=== PATIENT | male | born 1985 | race Caucasian/White ===

== ENCOUNTER 2017-03-24 05:19 | Emergency (ER) | payer OTHER ==
[2017-03-24] MEDS ORDERED: Pantoprazole IV* 40 MG IV ONE (05:37)
[2017-03-24] MEDS ORDERED: NS 0.9% 1000 ML* 1,000 ML IV ONE (05:37)
[2017-03-24 06:22] LABS: Hematocrit 44 % (42-52); Hemoglobin 15.2 g/dl (14.0-18.0); Mean Corpuscular HGB Conc 35 g/dl (31-36); Mean Corpuscular Hemoglobin 32 pg (27-31); Mean Corpuscular Volume 94 fL (80-94); Mean Platelet Volume 9 um3 (7.4-10.4); Red Cell Distribution Width 13 % (10.5-15); White Blood Count 7.7 10^3/ul (3.5-10.8)
[2017-03-24 06:34] LABS: BUN/Creatinine Ratio 14.7 (8-20); EGFR African American 109.6 (>60); EGFR Non-African American 85.2 (>60); Globulin 2.5 g/dL (2-4); Potassium 3.6 mmol/L (3.5-5.0); Total Bilirubin 0.8 mg/dL (0.2-1.0); Total Protein 6.5 g/dL (6.4-8.9)
--- NOTE | 2017-03-24 06:46 | ED ---
Maurizio Wong Tiffany, scribcasper for Dillan Dimas on 03/24/17 at 0545 . Abdominal Pain/Male - HPI Summary HPI Summary: This patient is a 31 year old male presenting to [facility] with a chief complaint of upper abdominal pain since two days ago. The patient rates the pain 8/10 in severity. Symptoms aggravated by nothing. Symptoms alleviated by nothing. Patient denies vomiting, diarrhea, chest pain, shortness of breath and fever. Patient notes pain is similar to pain from endoscopy from a few years ago. - History of Current Complaint Chief Complaint: EDAbdPain Stated Complaint: ABD PAIN Hx Obtained From: Patient Onset/Duration: Lasting Days - 2 days, Still Present Timing: Constant Severity Currently: Moderate Pain Intensity: 8 Pain Scale Used: 0-10 Numeric Location: Epigastric Aggravating Factor(s): Nothing Alleviating Factor(s): Nothing Associated Signs And Symptoms: Positive: Other - denies vomiting, diarrhea, chest pain, shortness of breath and fever - Allergies/Home Medications Allergies/Adverse Reactions: Allergies Allergy/AdvReac Type Severity Reaction Status Date / Time Amoxicillin Allergy Severe Hives Verified 06/14/12 19:06 PMH/Surg Hx/FS Hx/Imm Hx Previously Healthy: Yes Sensory History: Reports: Hx Contacts or Glasses EENT History: Denies: Hx Deafness Infectious Disease History: No Infectious Disease History: Denies: Traveled Outside the [place] in Last 30 Days - Family History Known Family History: Positive: Diabetes Negative: Cardiac Disease - Social History Alcohol Use: Occasionally Hx Substance Use: No Substance Use Type: Reports: None Hx Tobacco Use: Yes Review of Systems Negative: Fever Negative: Chest Pain Negative: Shortness Of Breath Positive: Abdominal Pain - Upper. Negative: Vomiting, Diarrhea All Other Systems Reviewed And Are Negative: Yes Physical Exam - Summary Physical Exam Summary: Appearance: Well appearing, no pain distress Skin: warm, dry, reflects adequate perfusion Head/face: normal Eyes: EOMI, DRISS ENT: normal Neck: supple, non-tender Respiratory: CTA, breath sounds present Cardiovascular: RRR, pulses symmetrical Abdomen: tenderness in epigastric RUQ Bowel: present Musculoskeletal: normal, strength/ROM intact Neuro: normal, sensory motor intact, A&Ox3 Triage Information Reviewed: Yes Vital Signs On Initial Exam: Initial Vitals Temp Pulse Resp BP Pulse Ox 97.9 F 83 16 141/90 100 03/24/17 05:25 03/24/17 05:25 03/24/17 05:25 03/24/17 05:25 03/24/17 05:25 Vital Signs Reviewed: Yes Diagnostics - Vital Signs Vital Signs Temp Pulse Resp BP Pulse Ox 03/24/17 05:25 97.9 F 83 16 141/90 100 - Laboratory Lab Results: Lab Results 03/24/17 03/24/17 03/24/17 Range/Units 05:50 05:50 05:50 WBC 7.7 (3.5-10.8) 10^3/ul RBC 4.70 (4.0-5.4) 10^6/ul Hgb 15.2 (14.0-18.0) g/dl Hct 44 (42-52) % MCV 94 (80-94) fL MCH 32 H (27-31) pg MCHC 35 (31-36) g/dl RDW 13 (10.5-15) % Plt Count 212 (150-450) 10^3/ul MPV 9 (7.4-10.4) um3 Neut % (Auto) 59.3 (38-83) % Lymph % (Auto) 28.4 (25-47) % [place] % (Auto) 8.6 (1-9) % Eos % (Auto) 2.9 (0-6) % Baso % (Auto) 0.8 (0-2) % Absolute Neuts (auto) 4.6 (1.5-7.7) 10^3/ul Absolute Lymphs (auto) 2.2 (1.0-4.8) 10^3/ul Absolute Monos (auto) 0.7 (0-0.8) 10^3/ul Absolute Eos (auto) 0.2 (0-0.6) 10^3/ul Absolute Basos (auto) 0.1 (0-0.2) 10^3/ul Absolute Nucleated RBC 0 10^3/ul Nucleated RBC % 0.1 INR (Anticoag Therapy) 0.86 (0.77-1.02) APTT 30.4 (26.0-36.3) seconds Sodium 138 (133-145) mmol/L Potassium 3.6 (3.5-5.0) mmol/L Chloride 103 (101-111) mmol/L Carbon Dioxide 29 (22-32) mmol/L Anion Gap 6 (2-11) mmol/L BUN 15 (6-24) mg/dL Creatinine 1.02 (0.67-1.17) mg/dL Est GFR ( Amer) 109.6 (>60) Est GFR (Non-Af Amer) 85.2 (>60) BUN/Creatinine Ratio 14.7 (8-20) Glucose 95 (70-100) mg/dL Calcium 9.0 (8.6-10.3) mg/dL Total Bilirubin 0.80 (0.2-1.0) mg/dL AST 25 (13-39) U/L ALT 21 (7-52) U/L Alkaline Phosphatase 46 (34-104) U/L Troponin I 0.00 (<0.04) ng/mL Total Protein 6.5 (6.4-8.9) g/dL Albumin 4.0 (3.2-5.2) g/dL Globulin 2.5 (2-4) g/dL Albumin/Globulin Ratio 1.6 (1-3) Lipase 20 (11.0-82.0) U/L Result Diagrams: 03/24/17 05:50 03/24/17 05:50 Lab Statement: Any lab studies that have been ordered have been reviewed, and results considered in the medical decision making process. - EKG 05:42 Cardiac Rate: NL EKG Rhythm: Sinus Rhythm - 74 BPM EKG Interpretation: No acute changes Abdominal Pain Fem Course/Dx - Course Course Of Treatment: This patient is a 31 year old male presenting to [facility] with a chief complaint of upper abdominal pain since two days ago. An EKG reveals sinus rhythm at 74 BPM and no acute changes. Bloodwork and Urinalysis obtained. In the ED course the patient was given Protonics. Patient will be signed out to Dr. Carey at shift change, awaiting CXR and US Gallbladder reports. - Diagnoses Provider Diagnoses: Abdominal pain Discharge - Discharge Plan Condition: Fair Disposition: OTHER Discharge Disposition Comment: Patient will be signed out at shift change, awaiting CXR and US reports Referrals: No Primary Care Phys,NOPCP [Primary Care Provider] - The documentation as recorded by the Maurizio hill Tiffany accurately reflects the service I personally performed and the decisions made by , Dillan Dimas.
[2017-03-24 07:09] LABS: Urine Bilirubin Negative (Negative); Urine Glucose Negative (Negative); Urine Nitrite Negative (Negative)
--- NOTE | 2017-03-24 08:02 | RAD ---
INDICATION: Chest pain COMPARISON: None. TECHNIQUE: Single AP portable view of the chest was obtained. FINDINGS: Image quality is compromised due to the relative inferiority of a portable chest x-ray. The heart and mediastinum exhibit normal size and contour. The lungs are grossly clear. There is no evidence of a large pleural effusion. Visualized bones are normal for the patient's age. IMPRESSION: No radiographic evidence for acute cardiopulmonary abnormality on this portable chest x-ray.
--- NOTE | 2017-03-24 08:24 | RAD ---
HISTORY: Right upper quadrant pain. COMPARISONS: Similar examination dated June 14, 2012 TECHNIQUE: Multiple transverse and longitudinal ultrasound images were obtained of the right upper quadrant. FINDINGS: LIVER: The liver is normal in dimensions and echogenicity. Normal hepatic and portal venous blood flow is duplicated with color flow imaging. There is no gross intrahepatic biliary duct dilatation. GALLBLADDER AND EXTRAHEPATIC BILIARY DUCT: The gallbladder is normal in appearance without intraluminal stones or other soft tissue masses. There is no pericholecystic fluid or gallbladder wall thickening. The common bile duct measures a maximum diameter of 5 mm. PANCREAS: The portions of the pancreas not obscured by bowel gas are normal in appearance. RIGHT KIDNEY: The right kidney is normal in size, morphology and echogenicity. AORTA AND IVC: The visualized portions are normal in appearance and not pathologically dilated. IMPRESSION: Normal ultrasound of the right upper quadrant.
[2017-03-24] MEDS ORDERED: Al Hydrox/Mg Hydrox/Simet LIQ* 30 ML UDC PO ONE (08:53)
[2017-03-24] MEDS ORDERED: Lidocaine 2% VISCOUS* 15 ML UDC PO ONE (08:53)
[2017-03-24 09:21] VITALS: BP 121/71
--- NOTE | 2017-03-24 14:57 | ED ---
Giuseppe Wong Angela, scribed for Cristopher Carey MD on 03/24/17 at 0715 . Progress - Progress Note Progress Note: This pt was signed out by Dr. Dimas, pending disposition, awaiting chest XR and gallbladder US. Pt is a 31 y/o male presenting to [facility] c/o upper abdominal pain x2 days. On re-evaluation pt is pain free, non-tender. Pt has been taking Anushka-Toomsuba and ibuprofen for the abd pain. I have advised him to stop taking these. Pt will be discharged with follow up from [facility]. Pt will be discharged to home, in stable condition, with a diagnosis of epigastric pain. Condition: Stable Disposition: Home - Results/Orders Results/Orders: Chest XR, as read by radiologist: IMPRESSION: No radiographic evidence for acute cardiopulmonary abnormality on this portable chest x-ray. Dr. Carey has reviewed this radiology report. Gallbladder US, as read by radiologist: IMPRESSION: Normal ultrasound of the right upper quadrant. Dr. Carey has reviewed this radiology report. Re-Evaluation - Re-Evaluation First Eval Re-Evaluation Time: 08:52 Comment: Pt is currently pain free and is non-tender. Course/Dx - Diagnoses Provider Diagnoses: Epigastric pain The documentation as recorded by the Giuseppe hill Angela accurately reflects the service I personally performed and the decisions made by , Cristopher Carey MD.
== END 2017-03-24 09:19 | disposition home or self-care (01) ==
LOC: ED 05:19
DX: R10.13 Epigastric pain (principal); R10.10 Upper abdominal pain, unspecified; Z88.1 Allergy status to other antibiotic agents
CPT/HCPCS: 36415; 71010; 76705; 80053; 81003; 83690; 84484; 85025; 85610; 85730; 93005; 96361; 96374; 99283